=== PATIENT | female | born 1950 | race Caucasian/White ===

== ENCOUNTER 2016-10-22 10:50 | Inpatient (IN) | payer MEDICARE ==
[2016-10-14 12:52] LABS: BASOPHILS 0.7 %; BASOPHILS ABSOLUTE 0.05 10/3/uL (0.0-0.16); EOSINOPHILS 1.7 %; EOSINOPHILS ABSOLUTE 0.12 10/3/uL (0.0-0.53); HEMATOCRIT 39.9 % (36.0-48.0); HEMOGLOBIN 13.7 g/dL (12.0-16.0); IMMATURE GRANULOCYTES 0.1 %; IMMATURE GRANULOCYTES ABSOLUTE 0.01 10/3/uL (0.0-0.11); LYMPHOCYTES 28.6 %; LYMPHOCYTES ABSOLUTE 1.98 10/3/uL (0.67-4.30); MEAN CORPUS HGB CONC 34.3 g/dL (32.0-36.0); MEAN CORPUSCULAR HEMOGLOB 30.3 pg (26.0-34.0); MEAN CORPUSCULAR VOLUME 88.3 fL (80-100); MEAN PLATELET VOLUME 12.4 fL (9.2-13.0); MONOCYTES 9.7 %; MONOCYTES ABSOLUTE 0.67 10/3/uL (0.21-1.20); NEUTROPHILS 59.2 %; PLATELET COUNT 119 10/3/uL (150-400); RBC DISTRIBUTION WIDTH 14.1 % (12.0-16.0); RED CELL COUNT 4.52 10/6/uL (4.0-5.6); WHITE BLOOD CELLS 6.9 10/3/uL (4.5-10.5)
[2016-10-14 12:53] LABS: MANUAL DIFF NO %
[2016-10-14 13:04] LABS: BUN (BLOOD UREA NITROGEN) 18 MG/DL (6-23); CALCIUM, SERUM 8.6 MG/DL (8.5-10.4); CHLORIDE, SERUM 104 MMOL/L (96-112); CO2 (CARBON DIOXIDE) 30 MMOL/L (24-34); CREATININE 0.98 MG/DL (0.55-1.02); GFR AFRICAN AMERICAN 69 ML/MIN (>=60); GFR NON AFRICAN AMERICAN 59 ML/MIN (>=60); GLUCOSE, SERUM 190 MG/DL (60-99); POTASSIUM, SERUM 3.9 MMOL/L (3.5-5.3); SODIUM, SERUM 140 MMOL/L (135-148)
--- NOTE | ~2016-10-22 | DS ---
Discharge Summary [facility] [address] [place]. [address] NAME: SUZAN ALLEN : 46 STATUS : DIS IN PAT#: [id number] AGE: 66 ADM/REG DATE : 10/22/16 MR#: [id number] REPORT SERV DATE: 11/07/16 DICTATED BY: MINGO VARGHESE DATE: 11/06/16 REPORT STATUS : Draft TRANSCRIBED BY: EMORY DATE: 11/06/16 Data Collection from hospitalization DISCHARGE DIAGNOSES: 1. Left renal mass. 2. Gross hematuria. 3. Hypertension. 4. Diabetes mellitus. 5. History of shingles. 6. Asthma. 7. Chronic obstructive pulmonary disease. 8. Tobacco use. 9. History of cerebrovascular accident. CONSULTATIONS: 1. Rebecca Quiros NP. 2. Phuong Dickey M.D. PROCEDURES PERFORMED: Laparoscopic left radical nephrectomy and flexible cystoscopy on 10/22/2016. PATHOLOGY: Kidney, left, radical nephrectomy - renal cell carcinoma. Lymph node, left hilar excision - one node negative for metastatic carcinoma (0/1). MEDICATIONS: Ventolin 4 mg four times a day, Norvasc 10 mg every morning, aspirin 81 mg daily, Lipitor 20 mg every morning, Nexium 40 mg every morning, Monopril 40 mg every morning, Amaryl 1 mg daily, hydrochlorothiazide 25 mg every morning, [place] 10/325 one tablet every four hours as needed and 7.5/325 one tablet every six hours as needed, levothyroxine 88 mcg every morning, Toprol-XL 25 mg every morning, Klor-Con 10 mEq every morning, Zohydro one tablet every 12 hours as needed, Lovenox as instructed, and Coumadin 2.5 mg daily. CONDITION AT DISCHARGE: Stable. DISPOSITION: The patient was discharged home to be followed by home health care on an 1800- calorie diabetic diet with activities as instructed. She would follow up with me on 11/19/2016. She would follow up with her primary care physician two to three weeks following discharge. HOSPITAL COURSE: This is a 66-year-old female who was found to have a solid 6 cm enhancing left renal mass during workup of hematuria. There was no evidence of metastatic disease to the retroperitoneum or lungs. She does have borderline adenopathy at the renal hilum. Treatment options were discussed and it was elected to proceed with surgical intervention. She was admitted to the hospital at this time for further evaluation and treatment. Upon admission, she was taken to the operating room where she underwent the above-mentioned procedure. She tolerated this well, and there were no complications. Postoperatively, she was seen by Rebecca Quiros. The patient has been a diabetic for approximately 12 years. She said that she takes her blood sugars only about one week at best. Hemoglobin A1c was Discharge Summary [address] [place]. [address] NAME: SUZAN ALLEN : 46 STATUS : DIS IN PAT#: [id number] AGE: 66 ADM/REG DATE : 10/22/16 MR#: [id number] REPORT SERV DATE: 11/07/16 DICTATED BY: MINGO VARGHESE DATE: 11/06/16 REPORT STATUS : Draft TRANSCRIBED BY: EMORY DATE: 11/06/16 unknown. She was going to undergo diabetes education and discussed diet and blood sugar monitoring. She was receiving level 1 sliding scale insulin at this time. She was being held n.p.o. except for medications. Postoperatively, she would have her Amaryl held and she would be on the hypoglycemic protocol. She does have hypothyroidism. Her Synthroid was continued. We would check her TSH. Blood pressure medications were continued, but her hydrochlorothiazide was held. IV hydralazine would be given for systolic blood pressure greater than 160. She has a history of having stent and DVT in the past. SCDs and TEDs were placed for DVT prophylaxis. Her aspirin and Coumadin were on hold. Ventolin tablets and DuoNeb treatments were continued. We would continue to monitor O2 saturations while she was on a PROJECT MANAGER/DESIGN MANAGER and keep her O2 saturation 92% or greater. Lipitor was continued as well as Nexium. On postop day #1, she was going to be transferred to the floor. White count was 9.6. Her abdomen was soft, nondistended, and nontender. She had no edema. She was seen by Dr. Phuong Dickey regarding hypertension and history of peripheral vascular disease. Her EKG was pending. DVT prophylaxis was recommended as well as low-dose beta-chuck. He agreed with IV hydralazine while advancing her diet and then resuming her home medications once she was able to tolerate oral intake. She was encouraged to use pulmonary toilet and increase her activity as able. Warfarin would be obtained once this was okay with all physicians. On 10/24/2016, she had no new complaints. Cardiovascular status was stable. She underwent diabetes education. She did have a cough that was occasionally productive. She was encouraged to use incentive spirometry. On 10/25/2016, she was tolerating clear liquids. She did have a bowel movement. Her incisions looked okay. Her diet was advanced. We encouraged her to increase her activity. Pathology results were reviewed. Over the next few days, she continued to progress. She had some difficulty walking secondary to weakness and shortness of breath. Her T-max was 100. Discharge planning was performed. Her incisions looked okay. The Carver catheter was removed. PROJECT MANAGER/DESIGN MANAGER was discontinued. She did complain of significant pain with ambulation. She was evaluated by Physical Therapy. On 10/28/2016, she was breathing better. Her incisions were clean, dry, and intact. It was felt that she would need home O2. Hemoglobin A1c was found to be 6.1. Her blood pressure was controlled. INR level was 2.5. Her home dose of Coumadin had been resumed. Discharge instructions were given. Due to her improved and stable condition, she was discharged home to be followed by home health care with the above-stated instructions. Information collected by: Teodora Collado I submit the above information as my discharge summary. TG/MODL Mingo Varghese M.D. / [id number] CC: Caitlin Blakely LISA M Dannis Hood Jr., M.D.
--- NOTE | ~2016-10-22 | CN ---
Consultation Report [place] [id number] [facility] [place]. [address] NAME: SUZAN ALLEN : 46 STATUS : ADM IN [facility]#: [id number] AGE: 66 ADM/REG DATE : 10/22/16 MR#: [id number] REPORT SERV DATE: 10/23/16 DICTATED BY: NAGAREBECCA BLANQUITA DATE: 10/22/16 REPORT STATUS : Draft TRANSCRIBED BY: MODL DATE: 10/22/16 DATE OF CONSULTATION: 10/22/2016 REASON FOR CONSULTATION: Consulted for medical management. IDENTIFYING DATA: 1. PCP is Sang Smith M.D. as well as Grisel Elam NP. 2. Production Solderer, Phuong Dickey Jr. M.D. 3. Vascular surgeon, Baldemar Alejo M.D. 4. Pain management, Hong Denny. 5. Urologist, Sang Durand M.D. HISTORY OF PRESENT ILLNESS: This is a 66-year-old female, who presents to Dr. Sang Durand after she was diagnosed having a left kidney mass, which was discovered on 09/15/2016. She had an MRI of the abdomen with and without contrast for which she is status post surgery on 10/22/2016 with a left nephrectomy. The patient has a history of hypertension, DVT, previous CVA with no residual effects, COPD with asthma, diabetes type 2 which was diagnosed about 12 years ago, anxiety, and also melanoma previously of nose as well as her present admission for left renal mass status post surgery. We have been consulted to help manage the patient's medical management of comorbidities. The patient's history was obtained through careful interview with the patient's daughter. The patient is very sedated and is on a BIRTH ATTENDANT morphine with review also of cyber security consultant notes. PAST MEDICAL HISTORY: 1. CVA with no residual affects. 2. Hypertension. 3. Previous DVT. 4. Pneumonia in July of 2016. 5. COPD with asthma. 6. Endometriosis. 7. Arthritis. 8. Chronic lower back pain. 9. Hiatal hernia. 10.Ulcer. 11.Left renal mass. 12.Kidney stones. 13.Shingles of the spine. 14.Anemia. 15.Melanoma of the nose. 16.Hypothyroidism. 17.Diabetes type 2, diagnosed approximately 12 years ago. 18.Anxiety. HOME MEDICATIONS: Consultation Report [facility] [address] [place]. [address] NAME: SUZAN ALLEN : 46 STATUS : ADM IN PAT#: [id number] AGE: 66 ADM/REG DATE : 10/22/16 MR#: [id number] REPORT SERV DATE: 10/23/16 DICTATED BY: REBECCA NIELSON DATE: 10/22/16 REPORT STATUS : Draft TRANSCRIBED BY: MODBaljinder DATE: 10/22/16 1. Amaryl 1 mg p.o. daily. 2. Hydrochlorothiazide 25 mg p.o. every morning. 3. Lortab 7.5/325, one tablet p.o. every six hours p.r.n. 4. Levothyroxine 88 mcg p.o. every morning. 5. Toprol-XL 25 mg p.o. every morning. 6. Potassium chloride 10 mEq p.o. every morning. 7. Albuterol 4 mg tablets, one tablet p.o. four times a day. 8. Norvasc 10 mg p.o. every morning. 9. Aspirin 81 mg p.o. daily. 10.Lipitor 20 mg p.o. every morning. 11.Nexium 40 mg p.o. every morning. 12.Monopril 40 mg p.o. every morning. 13.Coumadin 2.5 mg p.o. daily. ALLERGIES: 1. SULFA. 2. OXYCODONE. 3. ACETAMINOPHEN. 4. GABAPENTIN. 5. CONTRAST MEDIA. SOCIAL HISTORY: The patient is a , has four grown children. She smokes vapor cigarettes, approximately four a day. She lives in a single-level home, lives with her daughter and son. No alcohol or illicit drug use. FAMILY HISTORY: Positive for kidney stones, prostate cancer, and testicular cancer. The patient had five brothers and two sisters. One brother is from melanoma cancer. One brother is from an [place]. The patient's oldest brother has lung cancer. The patient's mother was positive for cancer and is . The patient's father had CABG and valve surgery and is now . SURGICAL HISTORY: 1. Bilateral CE/IOL. 2. Nasal surgery with reconstruction from cancer in 2008. 3. Hysterectomy/BSO in 1991. 4. Bilateral tubal ligation, 1990. 5. Right hand ganglion cyst surgery. 6. Eye lens implants on the left in 1997 and in the right in 1998. 7. Carotid surgery, 2008. 8. Heart surgery with stent, 2007. REVIEW OF SYSTEMS: Negative, other than what is in HPI dictation. The patient is sedated on her BIRTH ATTENDANT. She is newly postop from a left nephrectomy. She has no complaints of nausea and vomiting. No abdominal pain, except at op-site areas. No chest pain. No fever. Displays no agitation Consultation Report [address] [address] NAME: SUZAN ALLEN : 46 STATUS : ADM IN [facility]#: [id number] AGE: 66 ADM/REG DATE : 10/22/16 MR#: [id number] REPORT SERV DATE: 10/23/16 DICTATED BY: REBECCA NIELSON DATE: 10/22/16 REPORT STATUS : Draft TRANSCRIBED BY: MODBaljinder DATE: 10/22/16 or confusion. Has no shortness of breath. PHYSICAL EXAMINATION: VITAL SIGNS: From today, blood pressure 161/70, heart rate 62, O2 saturation 97%, and respiratory rate 24. GENERAL: This is a 66-year-old female, newly postop from a left nephrectomy. She is resting in bed. No acute distress. Has a BIRTH ATTENDANT morphine in use for pain. NEURO: Her head is atraumatic, normocephalic. She is sedated, answers minimally when awaking to questions. Cranial nerves intact. Mood appropriate. NECK: Supple. Trachea is midline. No JVD noted. No obvious thyromegaly or lymphadenopathy. EENT: Her sclerae are nonicteric. Pupils are equal and reactive to light. Her nares are patent. Her mucous membranes are moist. Her tongue is midline without deviation. Her soft palate rises equally with phonation. CHEST: No pain with palpation. LUNGS: Clear to auscultation. She is diminished in bases. No increased work of breathing with conversation. ABDOMEN: Obese. It is soft. It is tender at the op-site areas. Hypoactive bowel sounds. Last bowel movement on 10/21/2016. EXTREMITIES: Pulses present and equal bilaterally. No edema. Normal distal pulses. No calf tenderness. Has SCDs and TEDs in use for DVT prophylaxis. SKIN: Warm and dry. No unusual rashes or lesions. Normal color and turgor for age. PSYCH: The patient is sedated on BIRTH ATTENDANT, awakens only briefly to answer yes or no, and then returns back to sleep. Surgical wound site, she has three to four areas with little Tegaderm dressings on her abdomen that are clean, dry, and intact. She has a Carver catheter in place to monitor urinary output with yellow urine. LABORATORY DATA: Sodium 136, potassium 4.0, chloride 104, BUN 12, creatinine 0.91, GFR 75, glucose 178, calcium 8.8, magnesium 2.0, white blood cell 4.9, hemoglobin 13.7, hematocrit 39.5, platelets 105, INR 1.1. Present blood sugar is 189. The patient had an EKG on 10/08/2016, which showed a sinus bradycardia with a first degree heart block and a prolonged QT interval. ASSESSMENT AND PLAN: 1. Diabetes type 2. The patient has been diabetic for approximately 12 years. She states she checks her blood sugars and in talking with her daughter, only one time a week at best. Her hemoglobin A1c is unknown. We will have a software educator discuss diet and blood sugar monitoring with the patient. She is on a sliding scale level 1 a.c. and h.s., and we will check a blood sugar at 2 a.m. She is n.p.o., except for medications right now. Post surgery, we will hold her Amaryl and she will also be on the hypoglycemic protocol. 2. Hypothyroidism. Aware. We will continue the patient's Synthroid and check TSH in a.m. labs. Consultation Report [address] [place]. [address] NAME: SUZAN ALLEN : 46 STATUS : ADM IN [facility]#: [id number] AGE: 66 ADM/REG DATE : 10/22/16 MR#: [id number] REPORT SERV DATE: 10/23/16 DICTATED BY: REBECCA NIELSON DATE: 10/22/16 REPORT STATUS : Draft TRANSCRIBED BY: EMORY DATE: 10/22/16 3. Hypertension. Aware. We will continue the patient's home medications, but hold her hydrochlorothiazide. We will add hydralazine IV p.r.n. q.6 hours for systolic blood pressure greater than 160 because the patient is new postop and she is very sleepy and unable to take p.o. medications presently. She does have a history of having stents and DVT in the past. She has SCDs and TEDs for DVT prophylaxis and post surgery, her aspirin and Coumadin are on hold. 4. Chronic obstructive pulmonary disease and asthma. Aware. The patient will have her Ventolin tablets and DuoNeb scheduled while inpatient. We will continue to monitor O2 saturations while she is on a BIRTH ATTENDANT, and we will keep her O2 saturation 92% or greater, use an O2. 5. Hyperlipidemia. Aware. We will continue the patient's Lipitor. 6. Gastroesophageal reflux disease. Aware. The patient does have a history of ulcer and a hiatal hernia. We will continue her daily Nexium. The hospitalist group would like to thank you for this consultation. Please let us know if we could be of any further assistance. A.m. labs are pending for BMP, magnesium, phosphorus, CBC, hemoglobin A1c, TSH and she will get a portable chest x-ray in the a.m. JOHN Rebecca Nielson NP / [id number] CC: Sang Durand M.D.
--- NOTE | ~2016-10-22 | CN ---
Consultation Report [facility] [address] [place]. [address] NAME: SUZAN ALLEN : 46 STATUS : ADM IN PAT#: [id number] AGE: 66 ADM/REG DATE : 10/22/16 MR#: [id number] REPORT SERV DATE: 10/24/16 DICTATED BY: RAJWINDER DICKEY JR. DATE: 10/23/16 REPORT STATUS : Draft TRANSCRIBED BY: MODBaljinder DATE: 10/23/16 CONSULTATION DATE OF CONSULTATION: REFERRING PHYSICIANS: Dr. Sagn Durand and Dr. Grisel Feng. INDICATION FOR CONSULTATION: Hypertension, history of peripheral vascular disease, history of left nephrectomy postop day 1. HISTORY OF PRESENT ILLNESS: The patient is a 66-year-old white female with history of hypertension, history of prior CVA, history of prior DVT, history of left renal mass, now postop day 1 resection, normotensive, on ice chips. She denies any chest pain, dyspnea, or cardiac symptoms otherwise. REVIEW OF SYSTEMS: A 10-point review of systems, otherwise unremarkable. ALLERGIES: TO SULFA, OXYCODONE, ACETAMINOPHEN, GABAPENTIN, LYRICA, IODINATED CONTRAST. MEDICATIONS: Have included albuterol 4 mg as Ventolin 4 times daily, amlodipine 10 mg daily, aspirin 81 mg daily, Lipitor 20 mg at bedtime, Nexium 40 mg daily, fosinopril 40 mg daily, glimepiride 1 mg daily, hydrochlorothiazide 25 mg daily, [place] 7.5 q.6 hours p.r.n., levothyroxine 88 mcg daily, metoprolol XL 25 mg daily, potassium 10 mEq daily, Zohydro 1 tablet q.12 hours as needed, Lovenox on hold, warfarin 2.5 mg daily, on hold, last dose 10/17/2016. PAST MEDICAL HISTORY: Notable for history of prior CVA, hypertension, DVT, COPD, asthma, endometriosis, arthritis, chronic low back pain, hiatal hernia, ulcer, left renal mass, kidney stones, herpetic zoster, anemia, hypothyroidism, history of prior melanoma, diabetes mellitus, anxiety, depression. PAST SURGICAL HISTORY: Notable for carotid stent, history of bilateral IOL, nasal surgery and reconstruction, hysterectomy, bilateral tubal ligation, resection of ganglionic cyst, and bilateral lens implants. SOCIAL HISTORY: Notable for history of tobacco use with e-cigarettes currently. FAMILY HISTORY: Notable for prostate testicular cancer, coronary artery disease. PHYSICAL EXAMINATION: VITAL SIGNS: Pulse is 67, respirations 14, blood pressure is 173/74 mmHg. HEENT: Unremarkable. NECK: Supple without jugular venous distention or carotid bruits. CARDIOVASCULAR SYSTEM: Regular rhythm. Consultation Report [place] [id number] [place]. [address] NAME: SUZAN ALLEN : 46 STATUS : ADM IN [facility]#: [id number] AGE: 66 ADM/REG DATE : 10/22/16 MR#: [id number] REPORT SERV DATE: 10/24/16 DICTATED BY: RAJWINDER DICKEY JR. DATE: 10/23/16 REPORT STATUS : Draft TRANSCRIBED BY: EMORY DATE: 10/23/16 LUNGS: Clear. ABDOMEN: Soft, hypoactive bowel sounds postop. EXTREMITIES: 1+ with no pedal edema. NEUROLOGIC: She is grossly intact. LABORATORY DATA: EKG this morning is pending. Sodium 135, potassium 4.5, BUN 13, creatinine 1.16. GFR 56. Glucose 148, calcium 8.6, magnesium 1.9. H and H 15.4 and 45.6, white count of 9.6. BNP is not performed. TSH 1.6. IMPRESSION: A 66-year-old white female, postop day 1, resection, left nephrectomy with history of hypertension, peripheral artery disease, history of tobacco use, asthma, emphysema, diabetes mellitus, hypothyroidism, hyperlipidemia. PLANS AND RECOMMENDATIONS: 1. DVT prophylaxis. 2. Low-dose beta chuck. Agree with hydralazine IV while advancing diet and then resume home medications when able to take p.o. 3. Pulmonary toilet. 4. Increase activity as able. 5. DVT precautions. 6. SCDs. 7. Resume warfarin when okay with all. We will follow along with you. RISA/EMORY Rajwinder Dickey Jr., M.D. / [id number] CC: Caitlin Blakely NP
--- NOTE | ~2016-10-22 | OP ---
Record Of Operation [facility] [address] [place]. [address] NAME: SUZAN ALLEN : 46 STATUS : ADM IN PAT#: [id number] AGE: 66 ADM/REG DATE : 10/22/16 MR#: [id number] REPORT SERV DATE: 10/23/16 DICTATED BY: MINGO VARGHESE DATE: 10/22/16 REPORT STATUS : Draft TRANSCRIBED BY: MODL DATE: 10/22/16 DATE OF PROCEDURE: 10/22/2016 POSTOPERATIVE DIAGNOSES: 1. Left renal mass. 2. Gross hematuria. POSTOPERATIVE DIAGNOSES: 1. Left renal mass. 2. Gross hematuria. PROCEDURE PERFORMED: 1. Laparoscopic left radical nephrectomy. 2. Flexible cystoscopy. SURGEON: Mingo Varghese M.D. ANESTHESIA: General. BLOOD LOSS: 100 mL. COMPLICATIONS: None. DRAINS: Carver catheter. SPECIMEN: 1. Left kidney. 2. Hilar lymph node. COMPLICATIONS: None. INDICATION: Ms. Allen is a 66-year-old, who was found to have a solid 6-cm enhancing left renal mass during the workup of hematuria. There was no evidence of any metastatic disease to the retroperitoneum or lungs. She does have borderline adenopathy at the renal hilum. She presents for laparoscopic left nephrectomy and flexible cystoscopy to complete the hematuria workup. TECHNIQUE: Informed consent was obtained, received Ancef preop. She was brought to the operating and general anesthesia was administered. Genitals and perineum were prepped and draped, and in the frog-leg position, a flexible cystoscopy was performed, there were no lesions, tumors, or stones in the bladder, clear efflux of urine was seen from the right and left. A Carver catheter was placed. She was positioned in the right lateral decubitus position with the bed flexed. Care was taken to pad all pressure points. A Veress needle was used to obtain pneumoperitoneum through a stab incision in the left lower quadrant. After Record Of Operation [facility] [address] [place]. [address] NAME: SUZAN ALLEN : 46 STATUS : ADM IN PAT#: [id number] AGE: 66 ADM/REG DATE : 10/22/16 MR#: [id number] REPORT SERV DATE: 10/23/16 DICTATED BY: MINGO VARGHESE DATE: 10/22/16 REPORT STATUS : Draft TRANSCRIBED BY: EMORY DATE: 10/22/16 establishing adequate pneumoperitoneum, I placed 12-mm trocars x3 in the left lower quadrant, left upper quadrant, and left paramedian at the umbilicus. Laparoscopic inspection showed some adhesions between the omentum and the anterior abdominal wall, these were lysed sharply. I reflected the colon medially by incising the white line. The mass was anterolateral at the upper pole. At this point, the kidney was adhered to the spleen. The splenorenal attachments were divided with a Harmonic scalpel. I identified the ureter coursing over the retroperitoneum, the posterior dissection was performed bluntly. Dissection was carried down inferiorly and superiorly along the medial border. There was an accessory lower pole artery, this was divided with a stapler. At the renal vein, there was a short lumbar, this was triply clipped and divided with scissors. Next, I dissected the renal artery and renal vein, these were divided en block with additional fire of the endoscopic stapling device. The hilar transection was hemostatic. Next, I took down the remaining superior medial attachments with a Harmonic scalpel. Finally, the lateral attachments including all of the lateral and anterior attachments were divided including all of the perinephric fat. The ureter and gonadal vein were divided with one additional fire of the stapling device. The 12-mm trocars were closed with the Cole-Adithya port closure device utilizing 0 Vicryl. The left lower quadrant trocar site was extended to 15 mm, this specimen was bagged with a 15-mm EndoCatch bag, I extended this along the fascia and muscle splitting was performed. The specimen was extracted. I closed the extraction site fascia in two layers with running #1 PDS suture with additional 0 Vicryl internal retention sutures. The wound was irrigated. The skin was closed with subcuticular Monocryl. She tolerated the procedure, was taken to the recovery room in satisfactory condition. PLAN: Was admitted to the [facility] postop for observation. FLAKO/[facility] Mingo Varghese M.D. / [id number] CC: Mingo Varghese M.D.
[~2016-10-22 10:50] MED LIST: ALB4 PO; AMARYL1 MG PO; ASAB PO; C5 PO; HYDROCHLOROT25 MG PO; KLOR-CON M1010 MEQ PO; LEVOTHYROXIN88 MCG PO; LIPITOR20 PO; LOVENOX; MONOPRIL40 MG PO; NEXIUM40 PO; NORCO1 TA2 PO; NORV10 PO; TOPXL25 PO; ZOHYDRO PO
[2016-10-22 11:49] LABS: INTERNATIONAL NORMAL RATI 1.1 UNITS (-); PROTIME (NOT ORD) 14.5 SEC (12.0-14.5)
[2016-10-22 18:11] LABS: BASOPHILS 0.4 %; BASOPHILS ABSOLUTE 0.02 10/3/uL (0.0-0.16); EOSINOPHILS 0.2 %; EOSINOPHILS ABSOLUTE 0.01 10/3/uL (0.0-0.53); HEMATOCRIT 39.5 % (36.0-48.0); HEMOGLOBIN 13.7 g/dL (12.0-16.0); IMMATURE GRANULOCYTES 0.2 %; IMMATURE GRANULOCYTES ABSOLUTE 0.01 10/3/uL (0.0-0.11); LYMPHOCYTES 15.2 %; LYMPHOCYTES ABSOLUTE 0.75 10/3/uL (0.67-4.30); MEAN CORPUS HGB CONC 34.7 g/dL (32.0-36.0); MEAN CORPUSCULAR HEMOGLOB 30.6 pg (26.0-34.0); MEAN CORPUSCULAR VOLUME 88.2 fL (80-100); MEAN PLATELET VOLUME 12.5 fL (9.2-13.0); MONOCYTES 2.2 %; MONOCYTES ABSOLUTE 0.11 10/3/uL (0.21-1.20); NEUTROPHILS 81.8 %; NEUTROPHILS ABSOLUTE 4.03 10/3/uL (2.02-8.40); PLATELET COUNT 105 10/3/uL (150-400); RBC DISTRIBUTION WIDTH 13.9 % (12.0-16.0); RED CELL COUNT 4.48 10/6/uL (4.0-5.6); WHITE BLOOD CELLS 4.9 10/3/uL (4.5-10.5)
[2016-10-22 18:15] LABS: MANUAL DIFF NO %
[2016-10-22 18:24] LABS: CALCIUM, SERUM 8.8 MG/DL (8.5-10.4); CHLORIDE, SERUM 104 MMOL/L (96-112); CREATININE 0.91 MG/DL (0.55-1.02); GFR AFRICAN AMERICAN 75 ML/MIN (>=60); GFR NON AFRICAN AMERICAN 65 ML/MIN (>=60); GLUCOSE, SERUM 178 MG/DL (60-99); SODIUM, SERUM 136 MMOL/L (135-148)
[2016-10-22 18:25] LABS: BUN (BLOOD UREA NITROGEN) 12 MG/DL (6-23); CO2 (CARBON DIOXIDE) 24 MMOL/L (24-34)
[2016-10-23 04:37] LABS: BASOPHILS 0.1 %; BASOPHILS ABSOLUTE 0.01 10/3/uL (0.0-0.16); EOSINOPHILS 0 %; HEMOGLOBIN 15.4 g/dL (12.0-16.0); IMMATURE GRANULOCYTES 0.2 %; IMMATURE GRANULOCYTES ABSOLUTE 0.02 10/3/uL (0.0-0.11); LYMPHOCYTES 8.6 %; LYMPHOCYTES ABSOLUTE 0.82 10/3/uL (0.67-4.30); MEAN CORPUS HGB CONC 33.8 g/dL (32.0-36.0); MEAN CORPUSCULAR VOLUME 88.9 fL (80-100); MEAN PLATELET VOLUME 12.8 fL (9.2-13.0); MONOCYTES 4.2 %; NEUTROPHILS 86.9 %; NEUTROPHILS ABSOLUTE 8.33 10/3/uL (2.02-8.40); PLATELET COUNT 114 10/3/uL (150-400); RBC DISTRIBUTION WIDTH 13.7 % (12.0-16.0); RED CELL COUNT 5.13 10/6/uL (4.0-5.6)
[2016-10-23 04:39] LABS: HEMATOCRIT 45.6 % (36.0-48.0); MANUAL DIFF NO %; WHITE BLOOD CELLS 9.6 10/3/uL (4.5-10.5)
[2016-10-23 05:02] LABS: BUN (BLOOD UREA NITROGEN) 13 MG/DL (6-23); CALCIUM, SERUM 8.6 MG/DL (8.5-10.4); CHLORIDE, SERUM 103 MMOL/L (96-112); CO2 (CARBON DIOXIDE) 24 MMOL/L (24-34); CREATININE 1.16 MG/DL (0.55-1.02); GFR AFRICAN AMERICAN 56 ML/MIN (>=60); GFR NON AFRICAN AMERICAN 48 ML/MIN (>=60); GLUCOSE, SERUM 148 MG/DL (60-99); PHOSPHORUS, SERUM 2.7 MG/DL (2.5-4.5); POTASSIUM, SERUM 4.5 MMOL/L (3.5-5.3); SODIUM, SERUM 135 MMOL/L (135-148)
[2016-10-24 06:49] LABS: BASOPHILS 0.3 %; BASOPHILS ABSOLUTE 0.04 10/3/uL (0.0-0.16); EOSINOPHILS 0.2 %; EOSINOPHILS ABSOLUTE 0.03 10/3/uL (0.0-0.53); HEMATOCRIT 41.1 % (36.0-48.0); HEMOGLOBIN 13.7 g/dL (12.0-16.0); IMMATURE GRANULOCYTES 0.2 %; IMMATURE GRANULOCYTES ABSOLUTE 0.03 10/3/uL (0.0-0.11); LYMPHOCYTES 11.2 %; LYMPHOCYTES ABSOLUTE 1.41 10/3/uL (0.67-4.30); MEAN CORPUS HGB CONC 33.3 g/dL (32.0-36.0); MEAN CORPUSCULAR VOLUME 89.9 fL (80-100); MONOCYTES ABSOLUTE 1.64 10/3/uL (0.21-1.20); NEUTROPHILS 75.1 %; NEUTROPHILS ABSOLUTE 9.42 10/3/uL (2.02-8.40); PLATELET COUNT 115 10/3/uL (150-400); RBC DISTRIBUTION WIDTH 14.4 % (12.0-16.0); RED CELL COUNT 4.57 10/6/uL (4.0-5.6); WHITE BLOOD CELLS 12.6 10/3/uL (4.5-10.5)
[2016-10-24 06:50] LABS: MANUAL DIFF NO %
[2016-10-24 06:54] LABS: BUN (BLOOD UREA NITROGEN) 16 MG/DL (6-23); CALCIUM, SERUM 8.5 MG/DL (8.5-10.4); CHLORIDE, SERUM 101 MMOL/L (96-112); CO2 (CARBON DIOXIDE) 23 MMOL/L (24-34); CREATININE 1.79 MG/DL (0.55-1.02); GFR AFRICAN AMERICAN 33 ML/MIN (>=60); GFR NON AFRICAN AMERICAN 29 ML/MIN (>=60); GLUCOSE, SERUM 139 MG/DL (60-99); POTASSIUM, SERUM 4.7 MMOL/L (3.5-5.3); SODIUM, SERUM 135 MMOL/L (135-148)
[2016-10-25 06:38] LABS: BASOPHILS 0.4 %; BASOPHILS ABSOLUTE 0.04 10/3/uL (0.0-0.16); EOSINOPHILS 0.7 %; EOSINOPHILS ABSOLUTE 0.07 10/3/uL (0.0-0.53); HEMATOCRIT 37.4 % (36.0-48.0); HEMOGLOBIN 12.1 g/dL (12.0-16.0); IMMATURE GRANULOCYTES 0.4 %; IMMATURE GRANULOCYTES ABSOLUTE 0.04 10/3/uL (0.0-0.11); LYMPHOCYTES 11.9 %; LYMPHOCYTES ABSOLUTE 1.27 10/3/uL (0.67-4.30); MANUAL DIFF NO %; MEAN CORPUS HGB CONC 32.4 g/dL (32.0-36.0); MEAN CORPUSCULAR HEMOGLOB 29.8 pg (26.0-34.0); MEAN CORPUSCULAR VOLUME 92.1 fL (80-100); MEAN PLATELET VOLUME 11.8 fL (9.2-13.0); MONOCYTES 12.1 %; MONOCYTES ABSOLUTE 1.29 10/3/uL (0.21-1.20); NEUTROPHILS 74.5 %; NEUTROPHILS ABSOLUTE 7.92 10/3/uL (2.02-8.40); PLATELET COUNT 108 10/3/uL (150-400); RBC DISTRIBUTION WIDTH 13.9 % (12.0-16.0); RED CELL COUNT 4.06 10/6/uL (4.0-5.6); WHITE BLOOD CELLS 10.6 10/3/uL (4.5-10.5)
[2016-10-25 06:48] LABS: BUN (BLOOD UREA NITROGEN) 15 MG/DL (6-23); CALCIUM, SERUM 8.2 MG/DL (8.5-10.4); CHLORIDE, SERUM 106 MMOL/L (96-112); CO2 (CARBON DIOXIDE) 23 MMOL/L (24-34); CREATININE 1.49 MG/DL (0.55-1.02); GFR AFRICAN AMERICAN 41 ML/MIN (>=60); GFR NON AFRICAN AMERICAN 36 ML/MIN (>=60); GLUCOSE, SERUM 120 MG/DL (60-99); POTASSIUM, SERUM 4.7 MMOL/L (3.5-5.3); SODIUM, SERUM 137 MMOL/L (135-148)
[2016-10-25 22:40] LABS: INTERNATIONAL NORMAL RATI 1.3 UNITS (-); PROTIME (NOT ORD) 15.6 SEC (12.0-14.5)
[2016-10-26 05:37] LABS: INTERNATIONAL NORMAL RATI 1.2 UNITS (-); PROTIME (NOT ORD) 15.5 SEC (12.0-14.5)
[2016-10-27 04:42] LABS: BASOPHILS 0.3 %; BASOPHILS ABSOLUTE 0.03 10/3/uL (0.0-0.16); EOSINOPHILS 1.7 %; EOSINOPHILS ABSOLUTE 0.18 10/3/uL (0.0-0.53); HEMATOCRIT 36.6 % (36.0-48.0); HEMOGLOBIN 12.2 g/dL (12.0-16.0); IMMATURE GRANULOCYTES 0.3 %; IMMATURE GRANULOCYTES ABSOLUTE 0.03 10/3/uL (0.0-0.11); LYMPHOCYTES 9.9 %; LYMPHOCYTES ABSOLUTE 1.04 10/3/uL (0.67-4.30); MEAN CORPUS HGB CONC 33.3 g/dL (32.0-36.0); MEAN CORPUSCULAR VOLUME 90.1 fL (80-100); MEAN PLATELET VOLUME 12.6 fL (9.2-13.0); MONOCYTES 13.4 %; NEUTROPHILS 74.4 %; NEUTROPHILS ABSOLUTE 7.78 10/3/uL (2.02-8.40); PLATELET COUNT 138 10/3/uL (150-400); RBC DISTRIBUTION WIDTH 13.7 % (12.0-16.0); RED CELL COUNT 4.06 10/6/uL (4.0-5.6); WHITE BLOOD CELLS 10.5 10/3/uL (4.5-10.5)
[2016-10-27 04:44] LABS: BUN (BLOOD UREA NITROGEN) 17 MG/DL (6-23); CALCIUM, SERUM 8.4 MG/DL (8.5-10.4); CHLORIDE, SERUM 103 MMOL/L (96-112); CO2 (CARBON DIOXIDE) 24 MMOL/L (24-34); CREATININE 1.44 MG/DL (0.55-1.02); GFR AFRICAN AMERICAN 43 ML/MIN (>=60); GFR NON AFRICAN AMERICAN 37 ML/MIN (>=60); GLUCOSE, SERUM 123 MG/DL (60-99); POTASSIUM, SERUM 5.1 MMOL/L (3.5-5.3); SODIUM, SERUM 134 MMOL/L (135-148)
[2016-10-27 04:46] LABS: MANUAL DIFF NO %
[2016-10-27 04:48] LABS: INTERNATIONAL NORMAL RATI 1.8 UNITS (-)
[2016-10-27 04:56] LABS: PROTIME (NOT ORD) 20.4 SEC (12.0-14.5)
[2016-10-28 05:25] LABS: BASOPHILS 0.3 %; BASOPHILS ABSOLUTE 0.03 10/3/uL (0.0-0.16); EOSINOPHILS 2.2 %; EOSINOPHILS ABSOLUTE 0.22 10/3/uL (0.0-0.53); HEMATOCRIT 36.2 % (36.0-48.0); HEMOGLOBIN 12.1 g/dL (12.0-16.0); IMMATURE GRANULOCYTES 0.4 %; IMMATURE GRANULOCYTES ABSOLUTE 0.04 10/3/uL (0.0-0.11); LYMPHOCYTES ABSOLUTE 1.52 10/3/uL (0.67-4.30); MEAN CORPUS HGB CONC 33.4 g/dL (32.0-36.0); MEAN CORPUSCULAR VOLUME 89.8 fL (80-100); MEAN PLATELET VOLUME 13.1 fL (9.2-13.0); MONOCYTES 14.2 %; MONOCYTES ABSOLUTE 1.44 10/3/uL (0.21-1.20); NEUTROPHILS 67.9 %; NEUTROPHILS ABSOLUTE 6.88 10/3/uL (2.02-8.40); PLATELET COUNT 149 10/3/uL (150-400); RBC DISTRIBUTION WIDTH 13.5 % (12.0-16.0); RED CELL COUNT 4.03 10/6/uL (4.0-5.6); WHITE BLOOD CELLS 10.1 10/3/uL (4.5-10.5)
[2016-10-28 05:26] LABS: INTERNATIONAL NORMAL RATI 2.5 UNITS (-)
[2016-10-28 05:27] LABS: PROTIME (NOT ORD) 26.7 SEC (12.0-14.5)
[2016-10-28 05:29] LABS: MANUAL DIFF NO %
[2016-10-28 05:46] LABS: CALCIUM, SERUM 8.8 MG/DL (8.5-10.4); CHLORIDE, SERUM 102 MMOL/L (96-112); CO2 (CARBON DIOXIDE) 24 MMOL/L (24-34); CREATININE 1.76 MG/DL (0.55-1.02); GFR AFRICAN AMERICAN 34 ML/MIN (>=60); GFR NON AFRICAN AMERICAN 29 ML/MIN (>=60); GLUCOSE, SERUM 130 MG/DL (60-99); POTASSIUM, SERUM 4.4 MMOL/L (3.5-5.3); SODIUM, SERUM 136 MMOL/L (135-148)
[2016-10-28 05:47] LABS: BUN (BLOOD UREA NITROGEN) 28 MG/DL (6-23)
[2016-10-28] MEDS ORDERED: NORCO1 TAB PO (11:57)
== END 2016-10-28 18:48 | disposition home or self-care (01) | DRG 657 ==
LOC: SDC/OF 10:50 → PACU 17:49 → IMCU 19:41 → 4SO 10-23 21:46
PROVIDERS: Internal Medicine; Internal Medicine Cardiovascular Disease; Urology
PROC: 0TT14ZZ Resection of Left Kidney, Percutaneous Endoscopic Approach (ICD-10-PCS; principal; 2016-10-22 12:45)
PROC: 0TJB8ZZ Inspection of Bladder, Via Natural or Artificial Opening Endoscopic (ICD-10-PCS; 2016-10-22 12:45)
DX: C64.2 Malignant neoplasm of left kidney, except renal pelvis (principal); J96.10 Chronic respiratory failure, unspecified whether with hypoxia or hypercapnia; J44.9 Chronic obstructive pulmonary disease, unspecified; I10 Essential (primary) hypertension; D64.9 Anemia, unspecified; E11.9 Type 2 diabetes mellitus without complications; F32.9 Major depressive disorder, single episode, unspecified; M19.90 Unspecified osteoarthritis, unspecified site; K44.9 Diaphragmatic hernia without obstruction or gangrene; E03.9 Hypothyroidism, unspecified; F41.9 Anxiety disorder, unspecified; F17.290 Nicotine dependence, other tobacco product, uncomplicated; J45.909 Unspecified asthma, uncomplicated; K21.9 Gastro-esophageal reflux disease without esophagitis; E78.5 Hyperlipidemia, unspecified; Z88.2 Allergy status to sulfonamides; Z88.5 Allergy status to narcotic agent; Z88.6 Allergy status to analgesic agent; Z88.8 Allergy status to other drugs, medicaments and biological substances; Z86.73 Personal history of transient ischemic attack (TIA), and cerebral infarction without residual deficits; Z87.442 Personal history of urinary calculi; Z91.041 Radiographic dye allergy status; Z85.820 Personal history of malignant melanoma of skin; Z86.718 Personal history of other venous thrombosis and embolism; Z98.890 Other specified postprocedural states; Z82.49 Family history of ischemic heart disease and other diseases of the circulatory system; Z85.89 Personal history of malignant neoplasm of other organs and systems; Z79.01 Long term (current) use of anticoagulants
CPT/HCPCS: 36415; 71010; 71020; 80048; 82962; 83036; 83735; 84100; 84443; 85025; 85610; 86850; 86900; 86901; 87641; 88304; 88307; 93005; 94640; 97162-GP; A9270-GY; G8978-CK-GP; G8979-CI-GP; J0360; J0690; J2250; J2270; J2405; J2710; J2795; J3010; P9045